=== PATIENT | female | born 2005 | race Caucasian/White ===

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

== ENCOUNTER 2025-04-06 11:48 | Outpatient (CLI) | payer BC, SELFPAY | END 2025-04-06 11:49 | disposition home or self-care (01) | PROVIDERS: PCP Family Medicine; Visit Provider Registered Nurse | DX: Z11.3 Encounter for screening for infections with a predominantly sexual mode of transmission (principal); R53.83 Other fatigue | CPT/HCPCS: 82306; 84443; 87491; 87591 ==